=== PATIENT | male | born 1965 | race Two or more races ===

== ENCOUNTER 2020-01-23 14:33 | Inpatient (IN) | payer OTHER ==
[~2020-01-23] VITALS: Ht 172.7 cm; Wt 104.1 kg
[2020-01-23] MEDS ORDERED: DOXYCYCLINE 100MG/250ML 250 ML IV ONE (14:45)
[2020-01-23] MEDS ORDERED: DexAMETHasone SOD PHOS 10MG/1ML VIAL INJ IV ONE (14:45)
[2020-01-23 18:28] LABS: Basophils # (auto) 0 10 ^3/uL (0-0.2); Eosinophils # (auto) 0.1 10 ^3/uL (0-0.8); Eosinophils % (auto) 0.4 % (0.0-7.0); Lymphocytes # (auto) 0.7 10 ^3/uL (0.4-5.4); Neutrophils # (auto) 14.5 10 ^3/uL (1.6-8.6)
[2020-01-23 18:30] LABS: Basophils % (auto) 0.3 % (0.0-2.0); Hematocrit 54.7 % (41.0-53.0); Hemoglobin 17.9 g/dL (13.5-17.5); Lymphocytes % (auto) 4.4 % (10.0-50.0); Mean Corpuscular Hemoglobin 26.6 pg (28.0-32.0); Mean Corpuscular Hgb Conc. 32.7 g/dL (32.0-36.0); Mean Corpuscular Volume 81.3 fL (80.0-100.0); Monocytes # (auto) 1.2 10 ^3/uL (0-1.3); Monocytes % (auto) 7.3 % (0.0-12.0); Neutrophils % (auto) 87.6 % (37.0-80.0); Platelet Count (auto) 240 10^3/uL (140-450); Red Blood Cells 6.72 10^6/uL (4.5-5.90); Red Cell Distribution Width 14.5 % (11.8-14.3); White Blood Cell 16.5 10^3/uL (4.4-10.8)
[2020-01-23 18:44] LABS: Albumin 2.8 g/dL (3.4-5.0); Anion Gap 8 (5-15); Blood Urea Nitrogen 24 mg/dL (7-18); Calcium 8.7 mg/dL (8.5-10.1); Carbon Dioxide 26 mmol/L (21-32); Chloride 104 mmol/L (98-107); Glucose 150 mg/dL (74-106); Potassium 3.7 mmol/L (3.5-5.1); Sodium 138 mmol/L (136-145)
[2020-01-23 18:54] LABS: Alanine Aminotransferase 139 U/L (16-61); Alkaline Phosphatase 118 U/L (45-117); Aspartate Aminotransferase 74 U/L (15-37); BUN/Creatinine Ratio 14.9; GFR African American 58 mL/min; GFR Non-African American 48 mL/min; Lactate Dehydrogenase 526 U/L (87-241); Total Protein 8.2 g/dL (6.4-8.2)
[2020-01-24] MEDS ORDERED: NITROGLYCERIN 0.4 MG SL TAB SL PRN (01:30)
[2020-01-24] MEDS ORDERED: DOCUSATE SOD 100 MG CAP PO PRN (01:30)
[2020-01-24] MEDS ORDERED: MORPHINE SULF INJ 2 MG/ML SYRINGE 1ML IV PRN (01:30)
[2020-01-24] MEDS ORDERED: ASCORBIC ACID 500 MG TAB PO SCH (10:00)
[2020-01-24] MEDS ORDERED: DOXYCYCLINE 100MG/250ML 250 ML IV SCH (10:00)
[2020-01-24] MEDS ORDERED: REMDESIVIR PER PHARMACY 0 ML IV SCH (10:45)
[2020-01-24] MEDS: DexAMETHasone SOD PHOS 10MG/1ML VIAL INJ IV SCH (11:58)
[2020-01-24] MEDS: MULTIPLE VITAMIN TAB PO SCH (11:59)
[2020-01-24] MEDS: FAMOTIDINE 20 MG TAB PO SCH ×2 (12:00→21:49)
[2020-01-24] MEDS: ZINC SULFATE 220mg CAP or TAB PO SCH (12:00)
[2020-01-24] MEDS ORDERED: ENOXAPARIN SOD 100 MG/1 ML SYRINGE SC ONE (12:30)
[2020-01-24] MEDS ORDERED: levoFLOXacin 750MG 150 ML IV ONE (12:30)
[2020-01-24] MEDS ORDERED: FUROSEMIDE 40 MG/4 ML VIAL IV ONE (12:30)
[2020-01-24] MEDS: BUDESONIDE (INHALATION) 180 MCG IH IN SCH ×2 (13:36→21:34)
[2020-01-24] MEDS: CHOLECALCIFEROL (VITD3) 2,000 UNIT CAP PO SCH (14:32)
[2020-01-24 16:32] LABS: Urine WBC None Seen /hpf (0 - 3)
[2020-01-24 17:12] LABS: Urine Bacteria NONE SEEN /hpf (None Seen); Urine Blood Negative /uL (Negative); Urine Specific Gravity 1.008 (1.001-1.035)
[2020-01-24] MEDS: ENOXAPARIN SOD 100 MG/1 ML SYRINGE SC SCH (21:50)
[2020-01-24 21:54] VITALS: BP 119/72
[2020-01-25] MEDS: ONDANSETRON HCL 4 MG/2 ML VIAL IV PRN ×2 (00:05→10:34)
[2020-01-25] MEDS: ALBUTEROL SULF HFA 90MCG INH 200DOSE IN PRN ×2 (01:28→23:32)
[2020-01-25] MEDS ORDERED: ZOLP10TA PO (02:23)
[2020-01-25] MEDS ORDERED: MULTCAP45 PO (02:23)
[2020-01-25 05:00] VITALS: BP 121/79
[2020-01-25 05:23] LABS: Eosinophils # (auto) 0 10 ^3/uL (0-0.8); Monocytes # (auto) 1.1 10 ^3/uL (0-1.3); Nucleated Red Blood Cells % 0.2 %
[2020-01-25 05:25] LABS: Basophils # (auto) 0 10 ^3/uL (0-0.2); Basophils % (auto) 0.2 % (0.0-2.0); Hematocrit 49.4 % (41.0-53.0); Hemoglobin 16.1 g/dL (13.5-17.5); Lymphocytes # (auto) 0.9 10 ^3/uL (0.4-5.4); Lymphocytes % (auto) 5.1 % (10.0-50.0); Mean Corpuscular Hemoglobin 26.4 pg (28.0-32.0); Mean Corpuscular Hgb Conc. 32.5 g/dL (32.0-36.0); Mean Corpuscular Volume 81.3 fL (80.0-100.0); Neutrophils # (auto) 16.5 10 ^3/uL (1.6-8.6); Neutrophils % (auto) 88.7 % (37.0-80.0); Platelet Count (auto) 191 10^3/uL (140-450); Red Blood Cells 6.08 10^6/uL (4.5-5.90); Red Cell Distribution Width 14.2 % (11.8-14.3); White Blood Cell 18.6 10^3/uL (4.4-10.8)
[2020-01-25 05:49] LABS: BUN/Creatinine Ratio 24.6; Bilirubin, Total 0.7 mg/dL (0.2-1.0); Calcium 8.8 mg/dL (8.5-10.1)
[2020-01-25] MEDS: BUDESONIDE (INHALATION) 180 MCG IH IN SCH ×2 (06:56→22:16)
--- NOTE | 2020-01-25 07:55 | NUR ---
Opening Shift Note Assumed care of patient, awake and alert. No S/S of distress/SOB or pain. Instructed on POC and to call for assist PRN, will continue to monitor for changes Q1hr and PRN. Fall precautions in place per safety protocol. Patient currently on 15L Non-Rebreather.
[2020-01-25 09:00] VITALS: BP 112/67
[2020-01-25] MEDS: FUROSEMIDE 40 MG/4 ML VIAL IV SCH (09:44)
[2020-01-25] MEDS: DexAMETHasone SOD PHOS 10MG/1ML VIAL INJ IV SCH (09:44)
[2020-01-25] MEDS: ENOXAPARIN SOD 100 MG/1 ML SYRINGE SC SCH (09:45)
[2020-01-25] MEDS: ASCORBIC ACID 500 MG TAB PO SCH (09:45)
[2020-01-25] MEDS: levoFLOXacin 750MG 150 ML IV SCH (09:45)
[2020-01-25] MEDS: CHOLECALCIFEROL (VITD3) 2,000 UNIT CAP PO SCH (09:45)
[2020-01-25] MEDS: ZINC SULFATE 220mg CAP or TAB PO SCH (09:45)
[2020-01-25] MEDS: MULTIPLE VITAMIN TAB PO SCH (09:45)
[2020-01-25] MEDS: FAMOTIDINE 20 MG TAB PO SCH ×2 (09:45→23:13)
--- NOTE | 2020-01-25 10:00 | NUR ---
IV insertion IV access obtained, via clean sterile technique by inserting 22 gauge catheter at R hand after 1 attempt. IV secured properly. No trauma to site. Patient tolerated well. IV removal IV on R AC DC'd with clean sterile technique due to IV leaking, catheter fully intact. Pressure dressing applied to site. Patient tolerated well.
[2020-01-25] MEDS ORDERED: REMDESIVIR PER PHARMACY 0 ML IV SCH (11:30)
[2020-01-25 13:00] VITALS: BP 105/74
[2020-01-25] MEDS ORDERED: REMDESIVIR 200 MG in NS 210ml LOADING DOSE ADULT IV ONE ×2 (15:00→20:00)
--- NOTE | 2020-01-25 15:10 | NUR ---
IV insertion for CT Angio IV access obtained, via clean sterile technique by inserting 20 gauge catheter at LFA after 2 attempts. IV secured properly. No trauma to site. Patient tolerated well.
[2020-01-25 17:00] VITALS: BP 102/63
--- NOTE | 2020-01-25 18:53 | NUR ---
Remdesivir Received Medications from [facility]. Medication placed in Fridge, witnessed by SHEYLA Sarmiento. Will endorse to corrections counselor.
[2020-01-25 22:00] VITALS: BP 111/66
--- NOTE | 2020-01-25 22:25 | NUR ---
REMDESIVIR ADMINISTRATION LOADING DOSE PATIENT TOLERATED INFUSION WELL, NO S/S OF DISTRESS OR SOB PREINFUSION VITAL SIGNS: BP 111/56 HR 87 TEMP 97.8 F SPO2 96% RR 20 15 MIN INFUSION VITAL SIGNS: BP 119/ 74 HR 82 TEMP 97.6 SPO2 97% RR 20 POSTINFUSION VITAL SIGNS: BP 114/ 58 HR 78 TEMP 97.7 SPO2 97% RR 20
--- NOTE | 2020-01-25 22:50 | NUR ---
PAGED HOSPITALIST MADE HOSPITALIST AWARE OF CT ANGIO RESULTS. NEW ORDERS RECEIVED READ BACK AND VERIFIED, WILL IMPLEMENT. WILL CONTINUE TO MONITOR PATIENT Q1 AND PRN.
[2020-01-25] MEDS: APIXABAN 5 MG TAB PO SCH (23:13)
[2020-01-26] MEDS: HYDROcodone-ACET 5/325MG TAB PO PRN (00:04)
[2020-01-26 05:00] VITALS: BP 95/61
[2020-01-26] MEDS: ALBUTEROL SULF HFA 90MCG INH 200DOSE IN PRN ×2 (07:00→19:22)
[2020-01-26] MEDS: BUDESONIDE (INHALATION) 180 MCG IH IN SCH ×2 (07:00→21:57)
[2020-01-26 08:00] VITALS: BP 110/75
[2020-01-26] MEDS: ZINC SULFATE 220mg CAP or TAB PO SCH (09:43)
[2020-01-26] MEDS: DexAMETHasone SOD PHOS 10MG/1ML VIAL INJ IV SCH (09:43)
[2020-01-26] MEDS: levoFLOXacin 750MG 150 ML IV SCH (09:43)
[2020-01-26] MEDS: FUROSEMIDE 40 MG/4 ML VIAL IV SCH (09:43)
[2020-01-26] MEDS: FAMOTIDINE 20 MG TAB PO SCH ×2 (09:44→22:27)
[2020-01-26] MEDS: ASCORBIC ACID 500 MG TAB PO SCH (09:44)
[2020-01-26] MEDS: MULTIPLE VITAMIN TAB PO SCH (09:44)
[2020-01-26] MEDS: CHOLECALCIFEROL (VITD3) 2,000 UNIT CAP PO SCH (09:44)
[2020-01-26] MEDS: APIXABAN 5 MG TAB PO SCH ×2 (10:12→22:27)
[2020-01-26] MEDS: ACETAMINOPHEN 325 MG TAB PO PRN (10:13)
--- NOTE | 2020-01-26 11:50 | NUR ---
Nutrition Assessment Est energy needs 3880-9373 kcal (14-18 kcal/kg BW 101.4kg) Est protein needs 61-76g (0.6-0.75g/kg BW 101.4kg r/t CKD no HD) Will monitor and reassess prn. Addendum: 01/26/20 at [address] Amended: Links added.
[2020-01-26 12:00] VITALS: BP 97/59
[2020-01-26 14:34] LABS: Albumin 2.3 g/dL (3.4-5.0); Calcium 8.7 mg/dL (8.5-10.1)
[2020-01-26 14:44] LABS: BUN/Creatinine Ratio 27.4; Bilirubin, Total 0.7 mg/dL (0.2-1.0); Total Protein 7.5 g/dL (6.4-8.2)
[2020-01-26] MEDS: REMDESIVIR 100 MG in SODIUM CHL 0.9% 250 ML IV SCH (15:16)
--- NOTE | 2020-01-26 15:36 | NUR ---
REMDESIVIR Pre-infusion BP:125/79 HR:108 15min Post-Infusion BP: 116/87 HR:83
[2020-01-26 17:00] VITALS: BP 108/64
[2020-01-26 22:00] VITALS: BP 115/74
[2020-01-27 05:00] VITALS: BP 112/73
--- NOTE | 2020-01-27 06:26 | NUR ---
Respiratory note: TOOK PATIENT OFF NRB AND PLACED ON A 12L OXYMIZER. SPO2 92%
[2020-01-27 06:29] LABS: Albumin 2.1 g/dL (3.4-5.0); Calcium 8.5 mg/dL (8.5-10.1); Potassium 3.8 mmol/L (3.5-5.1)
[2020-01-27 06:32] LABS: Bilirubin, Total 0.7 mg/dL (0.2-1.0)
[2020-01-27] MEDS: ALBUTEROL SULF HFA 90MCG INH 200DOSE IN PRN ×2 (06:36→19:57)
[2020-01-27] MEDS: BUDESONIDE (INHALATION) 180 MCG IH IN SCH ×2 (06:36→19:57)
--- NOTE | 2020-01-27 07:15 | NUR ---
END OF SHIFT NOTE WILL ENDORSE CARE TO DAYSHIFT RN. AT THIS TIME PATIENT HAS NO S/S OF DISTRESS OR SOB.
--- NOTE | 2020-01-27 08:00 | NUR ---
Morning note Patient resting in bed with even and unlabored respirations on 12LPM Oxymizer, no distress noted. Instructed patient on POC, fall precautions and to call for assistance as needed. patient verbalized understanding. Fall precautions in place with call light within reach.
[2020-01-27 09:00] VITALS: BP 109/72
[2020-01-27] MEDS: DexAMETHasone SOD PHOS 10MG/1ML VIAL INJ IV SCH (10:02)
[2020-01-27] MEDS: levoFLOXacin 750MG 150 ML IV SCH (10:03)
[2020-01-27] MEDS: ZINC SULFATE 220mg CAP or TAB PO SCH (10:04)
[2020-01-27] MEDS: CHOLECALCIFEROL (VITD3) 2,000 UNIT CAP PO SCH (10:05)
[2020-01-27] MEDS: FAMOTIDINE 20 MG TAB PO SCH ×2 (10:05→21:41)
[2020-01-27] MEDS: ASCORBIC ACID 500 MG TAB PO SCH (10:05)
[2020-01-27] MEDS: APIXABAN 5 MG TAB PO SCH ×2 (10:06→21:41)
[2020-01-27] MEDS: MULTIPLE VITAMIN TAB PO SCH (10:06)
[2020-01-27] MEDS: FUROSEMIDE 40 MG/4 ML VIAL IV SCH (10:23)
--- NOTE | 2020-01-27 11:30 | NUR ---
MD was at bedside/IS placed at bedside Dr. Gracia was at bedside. IS placed at bedside per MD order. Educated patient on proper use. Patient verbalized understanding.
[2020-01-27 12:00] VITALS: BP 108/68
--- NOTE | 2020-01-27 16:25 | NUR ---
Patient transferred to room 279B via wheelchair Patient on 12LPM Oxymizer. Respirations even and unlabored, no distress noted. Patient transferred with all personal belongings. Patient to update next of kin on transfer.
[2020-01-27 17:00] VITALS: BP 104/68
[2020-01-27] MEDS: REMDESIVIR 100 MG in SODIUM CHL 0.9% 250 ML IV SCH (17:30)
--- NOTE | 2020-01-27 18:47 | NUR ---
Closing note Patient resting in bed with even and unlabored respirations on 12LPM Oxymizer, no distress noted. Fall precautions in place with call light within reach.
--- NOTE | 2020-01-27 18:49 | NUR ---
RE: Remdesivir Remdesivir infusing per MD order. Patient tolerating well. VS prior to infusion: BP 104/68mmHg, HR 86 bpm, pulse ox 92% on 12LPM Oxymizer. VS obtained 15 minutes after infusion starting: BP 114/69mmHg.
--- NOTE | 2020-01-27 19:26 | NUR ---
Opening Shift Note Assumed care of patient, awake and alert. No S/S of distress/SOB or pain. Instructed on POC and to call for assist PRN, will continue to monitor for changes Q1hr and PRN. bed in low position call light within reach.
--- NOTE | 2020-01-27 19:26 | NUR ---
Care endorsed to SHEYLA Gaffney.
[2020-01-27 21:00] VITALS: BP 101/70
--- NOTE | 2020-01-27 21:10 | NUR ---
Patient requesting sleeping pill will notify Hospitalist
--- NOTE | 2020-01-27 21:42 | NUR ---
Patient educated on how to use Incentive Spirometer patient verbalized understanding
--- NOTE | 2020-01-27 22:00 | NUR ---
Hospitalist paged for sleeping pill medication
--- NOTE | 2020-01-27 23:00 | NUR ---
Rounds Patient sleeping. shows no signs or symptoms of distress/sob or pain. HR 95bpm. Bilateral chest rise and fall rr 19.
[2020-01-28 05:05] VITALS: BP 106/70
[2020-01-28] MEDS: ALBUTEROL SULF HFA 90MCG INH 200DOSE IN PRN ×2 (06:47→21:01)
[2020-01-28] MEDS: BUDESONIDE (INHALATION) 180 MCG IH IN SCH ×2 (06:47→21:01)
[2020-01-28 07:11] LABS: Albumin 2.3 g/dL (3.4-5.0); Calcium 8.5 mg/dL (8.5-10.1); Potassium 3.9 mmol/L (3.5-5.1)
[2020-01-28 07:15] LABS: Basophils # (auto) 0 10 ^3/uL (0-0.2); Basophils % (auto) 0.1 % (0.0-2.0); Eosinophils # (auto) 0 10 ^3/uL (0-0.8); Eosinophils % (auto) 0.3 % (0.0-7.0); Hemoglobin 17.1 g/dL (13.5-17.5); Lymphocytes # (auto) 1.4 10 ^3/uL (0.4-5.4); Monocytes # (auto) 1.3 10 ^3/uL (0-1.3); Monocytes % (auto) 9.3 % (0.0-12.0)
[2020-01-28 07:17] LABS: Hematocrit 51.2 % (41.0-53.0); Lymphocytes % (auto) 10.3 % (10.0-50.0); Mean Corpuscular Hgb Conc. 33.3 g/dL (32.0-36.0); Mean Corpuscular Volume 81.1 fL (80.0-100.0); Nucleated Red Blood Cells % 0.1 %; Platelet Count (auto) 285 10^3/uL (140-450); Red Blood Cells 6.32 10^6/uL (4.5-5.90); White Blood Cell 13.8 10^3/uL (4.4-10.8)
[2020-01-28 07:20] LABS: BUN/Creatinine Ratio 27.8; Bilirubin, Total 0.7 mg/dL (0.2-1.0); CRP High Sensitivity 3.79 mg/dL (< 0.3); Total Protein 7.1 g/dL (6.4-8.2)
[2020-01-28 08:00] VITALS: BP 123/66
--- NOTE | 2020-01-28 08:00 | NUR ---
Opening shift note Assumed care of pt. Alert and Oriented x4. No S/S of distress/SOB or pain. Instructed POC. Will continue to monitor for changes Q1Hr, and PRN. Bed low position, call light w/in reach.
[2020-01-28] MEDS: DexAMETHasone SOD PHOS 10MG/1ML VIAL INJ IV SCH (11:34)
[2020-01-28] MEDS: FUROSEMIDE 40 MG/4 ML VIAL IV SCH (11:36)
[2020-01-28] MEDS: CHOLECALCIFEROL (VITD3) 2,000 UNIT CAP PO SCH (11:37)
[2020-01-28] MEDS: FAMOTIDINE 20 MG TAB PO SCH ×2 (11:38→21:33)
[2020-01-28] MEDS: ASCORBIC ACID 500 MG TAB PO SCH (11:39)
[2020-01-28] MEDS: ZINC SULFATE 220mg CAP or TAB PO SCH (11:40)
[2020-01-28] MEDS: MULTIPLE VITAMIN TAB PO SCH (11:40)
[2020-01-28] MEDS: levoFLOXacin 750MG 150 ML IV SCH (11:42)
[2020-01-28] MEDS: APIXABAN 5 MG TAB PO SCH ×2 (11:47→21:33)
--- NOTE | 2020-01-28 13:12 | NUR ---
IV out LFA IV taken out due to pain and burning when in use. RHA IV still remains intact.
[2020-01-28 14:51] VITALS: BP 94/71
[2020-01-28] MEDS: REMDESIVIR 100 MG in SODIUM CHL 0.9% 250 ML IV SCH (17:58)
[2020-01-28 18:00] VITALS: BP 109/71
--- NOTE | 2020-01-28 18:32 | NUR ---
IV removal/IV inserted IV DC'd with sterile technique, catheter fully intact. Pressure dressing applied to site. Patient tolerated procedure well. 22G IV inserted to RFA. aseptic techniques used. IV secured and dated. NOTE:
--- NOTE | 2020-01-28 18:33 | NUR ---
RE: Remdesivir Remdesivir infusing per MD order. VS obtained. VS WNL.
[2020-01-28 18:55] VITALS: BP 109/71
--- NOTE | 2020-01-28 19:15 | NUR ---
Opening Shift Note Assumed care of patient, awake and alert. No S/S of distress/SOB or pain. Instructed on POC and to call for assist PRN, will continue to monitor for changes Q1hr and PRN. Bed in low position and call light within reach.
--- NOTE | 2020-01-28 19:17 | NUR ---
RE: Remdesivir Remdesivir continues to infuse per MD order. patient tolerating well.
--- NOTE | 2020-01-28 19:18 | NUR ---
Closing Note Pt care transferred. Pt vitals WNL. Pt resting in bed on 10L oxymizer. Pt in no distress. Respirations normal and non-labored. Call light placed w/in reach.
--- NOTE | 2020-01-28 20:28 | NUR ---
Received call back from hospitalist [place]. Notified DALIA pugh patient requesting sleeping pill. New orders received orders read back and verified by DALIA marshall
[2020-01-28] MEDS ORDERED: TEMAZEPAM 15 MG CAP PO ONE (20:30)
[2020-01-28 22:00] VITALS: BP 106/69
[2020-01-29] VITALS (8 sets, daily range): BP systolic 92–109; BP diastolic 57–77
[2020-01-29 06:37] LABS: Albumin 2.3 g/dL (3.4-5.0); BUN/Creatinine Ratio 29.5; Bilirubin, Total 0.7 mg/dL (0.2-1.0); Calcium 8.5 mg/dL (8.5-10.1)
--- NOTE | 2020-01-29 07:10 | NUR ---
REPORT GIVEN TO DAYSHIFT RN PATIENT DENIES SOB/DISTRESS OR PAIN
[2020-01-29] MEDS: ALBUTEROL SULF HFA 90MCG INH 200DOSE IN PRN (08:59)
[2020-01-29] MEDS: BUDESONIDE (INHALATION) 180 MCG IH IN SCH (08:59)
[2020-01-29] MEDS: DexAMETHasone SOD PHOS 10MG/1ML VIAL INJ IV SCH (10:53)
[2020-01-29] MEDS: ZINC SULFATE 220mg CAP or TAB PO SCH (10:54)
[2020-01-29] MEDS: MULTIPLE VITAMIN TAB PO SCH (10:54)
[2020-01-29] MEDS: APIXABAN 5 MG TAB PO SCH ×2 (10:54→21:24)
[2020-01-29] MEDS: levoFLOXacin 750MG 150 ML IV SCH (10:54)
[2020-01-29] MEDS: FUROSEMIDE 40 MG/4 ML VIAL IV SCH (10:54)
[2020-01-29] MEDS: ASCORBIC ACID 500 MG TAB PO SCH (10:55)
[2020-01-29] MEDS: CHOLECALCIFEROL (VITD3) 2,000 UNIT CAP PO SCH (10:55)
[2020-01-29] MEDS: FAMOTIDINE 20 MG TAB PO SCH ×2 (10:55→21:24)
--- NOTE | 2020-01-29 12:15 | NUR ---
Nutrition Followup Notes Wt 105.5 kg Pt is in COVID isolation. Pt is currently on cardiac diet with adequate PO of 75% x5 per RN doc. pt also with DVT. Est energy needs 5015-5729 kcal (14-18 kcal/kg BW 101.4kg) Est protein needs 61-76g (0.6-0.75g/kg BW 101.4kg r/t CKD no HD) Will monitor and reassess prn. Labs: GLU 124 H BUN 38 H ALB 2.3 L BM: Pt had 1 BM today per RN note Skin: BS 20 low risk, full details in hospice home care coordinator note PES: Altered nutrition related labs aeb pt with elevated RFts, hyperglycemia, hypoalb r/t chronic medical conditions Obesity aeb pt with a BMI of 34.0kg/m2 r/t caloric intake in excess of needs Comments: Will continue to monitor PO intake, skin status, pertinent labs and weight trends. Will f/u in 3-5 days Rec: 1) Continue current plan of care
[2020-01-29] MEDS: REMDESIVIR 100 MG in SODIUM CHL 0.9% 250 ML IV SCH (15:30)
--- NOTE | 2020-01-29 15:30 | NUR ---
REMDESIVIR PRE-INFUSION VS BP: 105/68 MMHG HR: 97 BPM SPO2: 98% WILL CONTINUE TO MONITOR FOR CHANGES.
--- NOTE | 2020-01-29 15:45 | NUR ---
REMDESIVIR 15 MIN-INFUSION VS BP: 108/70 MMHG HR: 92 BPM SPO2: 94% WILL CONTINUE TO MONITOR FOR CHANGES. NO S/S OF SOB/DISTRESS NOTED.
--- NOTE | 2020-01-29 17:52 | NUR ---
REMDESIVIR POST INFUSION VS BP: 107/68 MMHG HR: 87 BPM SPO2: 98% WILL CONTINUE TO MONITOR FOR CHANGES. NO S/S OF SOB/DISTRESS NOTED.
--- NOTE | 2020-01-29 19:10 | NUR ---
ENDORSED CARE AND PLASMA ADMINISTRATION TO SHEYLA GARDNER.
--- NOTE | 2020-01-29 20:19 | NUR ---
Patient consented to receive Convalescent Plasma. Patient educated on benefits and risks patient verbalized understanding including of side effects. Patient has no further questions or concerns. Patient denies sob distress or pain.
--- NOTE | 2020-01-29 20:34 | NUR ---
15 min VS obtained. patient denies sob distress or pain. No signs or symptoms of allergic reaction or side effects reported or noted. Patient tolerated plasma transfusion well.
--- NOTE | 2020-01-29 22:06 | NUR ---
PLASMA TRANSFUSION ENDED. PATIENT TOLERATED WELL. DENIES SOB DISTRESS OR PAIN. NO SIGNS OF ALLERGIC REACTION NOTED OR REPORTED.VS TAKEN. CALL LIGHT WITHIN REACH AND BED IN LOW POSITION
[2020-01-29] MEDS: ACETAMINOPHEN 325 MG TAB PO PRN (22:14)
[2020-01-30] MEDS: ALBUTEROL SULF HFA 90MCG INH 200DOSE IN PRN ×2 (00:24→19:43)
[2020-01-30] MEDS: BUDESONIDE (INHALATION) 180 MCG IH IN SCH ×3 (00:24→23:13)
[2020-01-30 04:51] VITALS: BP 102/68
--- NOTE | 2020-01-30 07:05 | NUR ---
Report given to dayshift rn patient denies sob distress or pain.
[2020-01-30 09:00] VITALS: BP 104/68
[2020-01-30] MEDS: DexAMETHasone SOD PHOS 10MG/1ML VIAL INJ IV SCH (10:00)
[2020-01-30] MEDS: CHOLECALCIFEROL (VITD3) 2,000 UNIT CAP PO SCH (10:00)
[2020-01-30] MEDS: levoFLOXacin 750MG 150 ML IV SCH (10:00)
[2020-01-30] MEDS: ASCORBIC ACID 500 MG TAB PO SCH (10:01)
[2020-01-30] MEDS: APIXABAN 5 MG TAB PO SCH (10:01)
[2020-01-30] MEDS: FAMOTIDINE 20 MG TAB PO SCH ×2 (10:01→21:29)
[2020-01-30] MEDS: ZINC SULFATE 220mg CAP or TAB PO SCH (10:01)
[2020-01-30] MEDS: MULTIPLE VITAMIN TAB PO SCH (10:01)
[2020-01-30] MEDS: FUROSEMIDE 40 MG/4 ML VIAL IV SCH (10:02)
[2020-01-30 13:00] VITALS: BP 94/59
[2020-01-30 15:56] LABS: INR 1.23 (0.9-1.15); Partial Thromboplastin Time 32.8 sec (23.0-31.2)
[2020-01-30 17:00] VITALS: BP 99/65
[2020-01-30] MEDS ORDERED: WARFARIN SODIUM 5 MG TAB PO ONE (17:30)
--- NOTE | 2020-01-30 19:00 | NUR ---
OPENING NOTE- NOC SHIFT PATIENT ALERT AND ORIENTED X4. SOB ON EXERTION. PATIENT USES THUMBS UP OR DOWN TO STATE HOW HE IS FEELING. PATIENT USED THUMBS UP DURING THIS ASSESSMENT AND DENIES PAIN. PATIENT IS ON CONTINUOUS HOSPITAL ADMINISTRATIVE ASSISTANT. DISCUSSED POC WITH PATIENT AND INSTRUCTED PATIENT TO CALL USING CALL LIGHT; PATIENT VERBALIZED UNDERSTANDING. BEDSIDE TABLE WITHIN REACH, CALL LIGHT WITHIN REACH. WILL CONTINUE TO MONITOR Q1H AND PRN.
[2020-01-30 20:10] VITALS: BP 102/76
[2020-01-30] MEDS: HYDROcodone-ACET 5/325MG TAB PO PRN (21:31)
[2020-01-30 22:00] VITALS: BP 102/76
--- NOTE | 2020-01-31 | NUR ---
ROUNDS PATIENT RESTING COMFORTABLE. NO S/SX OF DISTRESS, SOB OR PAIN. CHEST RISE IS EVEN AND BREATHS ARE UNLABORED.
[2020-01-31 05:00] VITALS: BP 99/71
--- NOTE | 2020-01-31 05:10 | NUR ---
ROUNDS PATIENT AWAKE WATCHING TELEVISION IN BED. HEAD OF BED IS UP >30 DEGREES. PATIENT STATES VERBALLY THAT HE IS HAPPY WITH THE CARE AT THIS HOSPITAL. PROVIDED PATIENT WITH WET WASH CLOTH UPON REQUEST. NO S/SX OF DISTRESS, SOB OR PAIN. WILL CONTINUE TO MONITOR Q1H AND PRN.
[2020-01-31] MEDS: BUDESONIDE (INHALATION) 180 MCG IH IN SCH ×2 (06:55→20:10)
--- NOTE | 2020-01-31 07:04 | NUR ---
CLOSING NOTE- NOC SHIFT PATIENT IS ALERT AND ORIENTED X4. PATIENT IS COMFORTABLE IN BED. NO S/SX OF DISTRESS, SOB OR PAIN. WILL ENDORSE PATIENT CARE TO DAY SHIFT NURSE.
[2020-01-31 08:18] VITALS: BP 100/61
[2020-01-31 08:43] LABS: Potassium 3.6 mmol/L (3.5-5.1)
[2020-01-31 09:00] VITALS: BP 104/65
[2020-01-31 09:04] LABS: BUN/Creatinine Ratio 21.7; Calcium 9.1 mg/dL (8.5-10.1)
[2020-01-31 09:46] LABS: INR 1.2 (0.9-1.15); Partial Thromboplastin Time 31.5 sec (23.0-31.2)
[2020-01-31] MEDS: MULTIPLE VITAMIN TAB PO SCH (10:32)
[2020-01-31] MEDS: ZINC SULFATE 220mg CAP or TAB PO SCH (10:32)
[2020-01-31] MEDS: FAMOTIDINE 20 MG TAB PO SCH ×2 (10:33→21:02)
[2020-01-31] MEDS: DexAMETHasone SOD PHOS 10MG/1ML VIAL INJ IV SCH (10:34)
[2020-01-31] MEDS: CHOLECALCIFEROL (VITD3) 2,000 UNIT CAP PO SCH (10:34)
[2020-01-31] MEDS: levoFLOXacin 750MG 150 ML IV SCH (10:34)
[2020-01-31] MEDS: ASCORBIC ACID 500 MG TAB PO SCH (10:36)
[2020-01-31] MEDS: FUROSEMIDE 40 MG/4 ML VIAL IV SCH (10:37)
[2020-01-31 13:00] VITALS: BP 100/70
[2020-01-31 17:00] VITALS: BP 95/64
[2020-01-31] MEDS ORDERED: WARFARIN SODIUM 2.5 MG TAB PO ONE (17:00)
--- NOTE | 2020-01-31 17:59 | NUR ---
Patient AOx4, continue to be on 6L oximizer and sat. above 92%, coumadin 7.5 mg given in the afternoon per MD order. Educated patient for watch out for s/s of bleeding and the side effects of the medication. vital signs have been stable. patient ate more than 65% of breakfast and lunch. call light within reach, bed in low position, encouraged patient to call for assistance when getting out of the bed. will continue to monitor patient
--- NOTE | 2020-01-31 19:24 | NUR ---
Opening Shift Note Assumed care of patient, awake and alert x 4. No S/S of distress/SOB or pain.Bed is in lowest position and locked. Call light within reach. Board updated. Tele box number matches monitor and leads are in correct placement. Instructed on POC and to call for assist PRN, will continue to monitor for changes Q1hr and PRN.
[2020-01-31] MEDS: ALBUTEROL SULF HFA 90MCG INH 200DOSE IN PRN (20:10)
[2020-01-31 21:23] VITALS: BP 102/65
[2020-02-01 05:00] VITALS: BP 99/72
[2020-02-01 09:00] VITALS: BP 95/66
[2020-02-01] MEDS: ZINC SULFATE 220mg CAP or TAB PO SCH (09:51)
[2020-02-01] MEDS: DexAMETHasone SOD PHOS 10MG/1ML VIAL INJ IV SCH (09:51)
[2020-02-01] MEDS: MULTIPLE VITAMIN TAB PO SCH (09:51)
[2020-02-01] MEDS: FAMOTIDINE 20 MG TAB PO SCH ×2 (09:52→22:00)
[2020-02-01] MEDS: CHOLECALCIFEROL (VITD3) 2,000 UNIT CAP PO SCH (09:52)
[2020-02-01] MEDS: ASCORBIC ACID 500 MG TAB PO SCH (09:52)
[2020-02-01] MEDS: BUDESONIDE (INHALATION) 180 MCG IH IN SCH ×2 (10:00→19:42)
[2020-02-01 10:24] LABS: Basophils # (auto) 0 10 ^3/uL (0-0.2); Eosinophils # (auto) 0.1 10 ^3/uL (0-0.8)
[2020-02-01 10:26] LABS: Basophils % (auto) 0.3 % (0.0-2.0); Eosinophils % (auto) 0.6 % (0.0-7.0); Hematocrit 54.4 % (41.0-53.0); Hemoglobin 18.2 g/dL (13.5-17.5); Lymphocytes # (auto) 2.4 10 ^3/uL (0.4-5.4); Lymphocytes % (auto) 15.1 % (10.0-50.0); Mean Corpuscular Hemoglobin 27.1 pg (28.0-32.0); Mean Corpuscular Hgb Conc. 33.5 g/dL (32.0-36.0); Mean Corpuscular Volume 80.9 fL (80.0-100.0); Monocytes # (auto) 1.4 10 ^3/uL (0-1.3); Neutrophils # (auto) 12.1 10 ^3/uL (1.6-8.6); Nucleated Red Blood Cells % 0.3 %; Platelet Count (auto) 373 10^3/uL (140-450); Red Blood Cells 6.73 10^6/uL (4.5-5.90); Red Cell Distribution Width 14.4 % (11.8-14.3); White Blood Cell 16.1 10^3/uL (4.4-10.8)
[2020-02-01 10:35] LABS: INR 1.57 (0.9-1.15)
--- NOTE | 2020-02-01 10:40 | NUR ---
Nutrition Followup Notes Wt 104.6 kg Pt is in COVID isolation. Pt with no new distress per Rn note. Pt appetite is good aeb pt with an avg po intake fo 78% per Rn nutrition note of Cardiac 2g na Est energy needs 3177-2382 kcal (14-18 kcal/kg BW 101.4kg) Est protein needs 61-76g (0.6-0.75g/kg BW 101.4kg r/t CKD no HD) Will monitor and reassess prn. Labs: BUN 34H, Creat 1.57H, Alb 2.2L BM: Pt had 1 BM today per RN note Skin: BS 20 low risk, full details in critical care cns note PES: Altered nutrition related labs aeb pt with elevated RFts, hyperglycemia, hypoalb r/t chronic medical conditions Obesity aeb pt with a BMI of 34.0kg/m2 r/t caloric intake in excess of needs Comments: Will continue to monitor PO intake, skin status, pertinent labs and weight trends. Will f/u in 3-5 days Rec: 1) Continue current plan of care
[2020-02-01 11:03] LABS: Potassium 3.4 mmol/L (3.5-5.1)
[2020-02-01 11:11] LABS: BUN/Creatinine Ratio 23.7; Calcium 8.6 mg/dL (8.5-10.1)
[2020-02-01 12:54] VITALS: BP 90/62
[2020-02-01] MEDS: ALBUTEROL SULF HFA 90MCG INH 200DOSE IN PRN ×2 (16:20→19:42)
[2020-02-01] MEDS ORDERED: POTASSIUM CHL 20 Meq TABLET PO ONE (16:30)
[2020-02-01] MEDS ORDERED: SALINE 0.65 % NASAL SPRAY 45ML BOTTLE EACHNOSTRI ONE (16:30)
[2020-02-01] MEDS ORDERED: WARFARIN SODIUM 2.5 MG TAB PO ONE (17:00)
[2020-02-01] MEDS: SALINE 0.65 % NASAL SPRAY 45ML BOTTLE EACHNOSTRI SCH ×2 (18:04→22:00)
--- NOTE | 2020-02-01 19:00 | NUR ---
Opening Shift Note Assumed care of patient, awake and alert. No S/S of distress/SOB or pain. Instructed on POC and to call for assist PRN, will continue to monitor for changes Q1hr and PRN.
[2020-02-01 21:44] VITALS: BP 105/68
[2020-02-01] MEDS ORDERED: APIXABAN 5 MG TAB PO SCH (22:00)
[2020-02-02 05:54] VITALS: BP 104/61
[2020-02-02] MEDS: BUDESONIDE (INHALATION) 180 MCG IH IN SCH ×2 (06:27→20:11)
[2020-02-02] MEDS: ALBUTEROL SULF HFA 90MCG INH 200DOSE IN PRN ×2 (06:27→20:11)
[2020-02-02] MEDS: SALINE 0.65 % NASAL SPRAY 45ML BOTTLE EACHNOSTRI SCH ×4 (06:30→21:16)
[2020-02-02 07:03] LABS: Basophils # (auto) 0.1 10 ^3/uL (0-0.2); Eosinophils # (auto) 0.1 10 ^3/uL (0-0.8); Neutrophils # (auto) 12.2 10 ^3/uL (1.6-8.6)
[2020-02-02 07:05] LABS: Basophils % (auto) 0.4 % (0.0-2.0); Eosinophils % (auto) 0.6 % (0.0-7.0); Hematocrit 52.8 % (41.0-53.0); Hemoglobin 17.3 g/dL (13.5-17.5); Lymphocytes # (auto) 2.7 10 ^3/uL (0.4-5.4); Mean Corpuscular Hemoglobin 26.6 pg (28.0-32.0); Mean Corpuscular Hgb Conc. 32.8 g/dL (32.0-36.0); Mean Corpuscular Volume 81.1 fL (80.0-100.0); Monocytes # (auto) 1.8 10 ^3/uL (0-1.3); Monocytes % (auto) 10.8 % (0.0-12.0); Neutrophils % (auto) 72.2 % (37.0-80.0); Nucleated Red Blood Cells % 0.3 %; Platelet Count (auto) 416 10^3/uL (140-450); Red Blood Cells 6.51 10^6/uL (4.5-5.90); Red Cell Distribution Width 14.5 % (11.8-14.3); White Blood Cell 16.9 10^3/uL (4.4-10.8)
[2020-02-02 07:29] LABS: INR 1.71 (0.9-1.15)
[2020-02-02 07:44] LABS: Anion Gap 6 (5-15); BUN/Creatinine Ratio 25.6; Blood Urea Nitrogen 30 mg/dL (7-18); Calcium 8.6 mg/dL (8.5-10.1); Carbon Dioxide 26 mmol/L (21-32); Chloride 102 mmol/L (98-107); GFR African American 84 mL/min; GFR Non-African American 69 mL/min; Glucose 95 mg/dL (74-106); Potassium 4.2 mmol/L (3.5-5.1); Sodium 134 mmol/L (136-145)
[2020-02-02 08:39] VITALS: BP 100/65
[2020-02-02] MEDS: ASCORBIC ACID 500 MG TAB PO SCH (10:25)
[2020-02-02] MEDS: FAMOTIDINE 20 MG TAB PO SCH ×2 (10:25→21:16)
[2020-02-02] MEDS: DexAMETHasone 4 MG TAB PO SCH (10:25)
[2020-02-02] MEDS: CHOLECALCIFEROL (VITD3) 2,000 UNIT CAP PO SCH (10:25)
[2020-02-02] MEDS: MULTIPLE VITAMIN TAB PO SCH (10:25)
[2020-02-02] MEDS: ZINC SULFATE 220mg CAP or TAB PO SCH (10:25)
[2020-02-02 12:55] VITALS: BP 93/62
[2020-02-02 16:56] VITALS: BP 103/63
[2020-02-02] MEDS ORDERED: WARFARIN SODIUM 5 MG TAB PO ONE (17:00)
[2020-02-02 22:00] VITALS: BP 105/53
[2020-02-03 05:00] VITALS: BP 102/64
[2020-02-03] MEDS: SALINE 0.65 % NASAL SPRAY 45ML BOTTLE EACHNOSTRI SCH ×4 (05:48→21:18)
[2020-02-03 07:08] LABS: INR 1.73 (0.9-1.15)
[2020-02-03 08:00] VITALS: BP 104/65
[2020-02-03] MEDS: ZINC SULFATE 220mg CAP or TAB PO SCH (08:59)
[2020-02-03] MEDS: MULTIPLE VITAMIN TAB PO SCH (09:00)
[2020-02-03] MEDS: ASCORBIC ACID 500 MG TAB PO SCH (09:00)
[2020-02-03] MEDS: DexAMETHasone 4 MG TAB PO SCH (09:00)
[2020-02-03] MEDS: CHOLECALCIFEROL (VITD3) 2,000 UNIT CAP PO SCH (09:00)
[2020-02-03] MEDS: FAMOTIDINE 20 MG TAB PO SCH ×2 (09:00→21:18)
[2020-02-03 13:00] VITALS: BP 104/68
[2020-02-03] MEDS: BUDESONIDE (INHALATION) 180 MCG IH IN SCH ×2 (14:00→22:00)
[2020-02-03 17:00] VITALS: BP 117/64
[2020-02-03] MEDS ORDERED: WARFARIN SODIUM 2.5 MG TAB PO ONE (17:00)
[2020-02-03] MEDS: ALBUTEROL SULF HFA 90MCG INH 200DOSE IN PRN (20:08)
[2020-02-03 22:00] VITALS: BP 97/66
[2020-02-04] MEDS: SALINE 0.65 % NASAL SPRAY 45ML BOTTLE EACHNOSTRI SCH ×3 (05:37→18:24)
[2020-02-04 06:10] LABS: INR 2.12 (0.9-1.15)
[2020-02-04] MEDS: ASCORBIC ACID 500 MG TAB PO SCH (09:32)
[2020-02-04] MEDS: ZINC SULFATE 220mg CAP or TAB PO SCH (09:32)
[2020-02-04] MEDS: MULTIPLE VITAMIN TAB PO SCH (09:32)
[2020-02-04] MEDS: CHOLECALCIFEROL (VITD3) 2,000 UNIT CAP PO SCH (09:32)
[2020-02-04] MEDS: FAMOTIDINE 20 MG TAB PO SCH (09:32)
[2020-02-04] MEDS: DexAMETHasone 4 MG TAB PO SCH (09:32)
[2020-02-04] MEDS: BUDESONIDE (INHALATION) 180 MCG IH IN SCH ×2 (10:00→19:38)
--- NOTE | 2020-02-04 12:50 | NUR ---
Nutrition Followup Notes Wt 104.1 kg Pt is in COVID isolation. Pt continues to have no new distress, pt to possible D/c next two days per MD note. Pt with a good appetite aeb pt iwth 75-100% po intake x 2 days per Rn note Est energy needs 7288-5163 kcal (14-18 kcal/kg BW 101.4kg) Est protein needs 61-76g (0.6-0.75g/kg BW 101.4kg r/t CKD no HD) Will monitor and reassess prn. Labs: Na 134H, Alb 2.3L, BUn 30H BM: Pt had 1 BM 02/02 per RN note Skin: BS 21 low risk, full details in home health care provider note PES: Altered nutrition related labs aeb pt with elevated RFts, hyperglycemia, hypoalb r/t chronic medical conditions Obesity aeb pt with a BMI of 34.0kg/m2 r/t caloric intake in excess of needs Comments: Will continue to monitor PO intake, skin status, pertinent labs and weight trends. Will f/u in 3-5 days Rec: 1) Continue current plan of care
[2020-02-04 15:43] VITALS: BP 104/65
--- NOTE | 2020-02-04 15:50 | NUR ---
D/C Planning Regarding social service consult for home oxygen at 4l/min. Faxed clinical information to [employer] requesting for oxygen portable to be deliver to front lobby and concentrate oxygen to patient home. Per Shanae with [employer] order has been received and oxygen will be deliver between 4-5pm. Informed SHEYLA Hudson.
[2020-02-04] MEDS ORDERED: WARFARIN SODIUM 2 MG TAB PO ONE (17:00)
[2020-02-04] MEDS: ALBUTEROL SULF HFA 90MCG INH 200DOSE IN PRN (19:38)
--- NOTE | 2020-02-04 19:50 | NUR ---
DISCHARGE Confirmed delivery of home o2. Patients telemetry box #[id number] removed and sent to cardiac monitor office via [email or web address] system. All personal belongings, discharge paperwork and prescriptions sent with patient. Escorted to lobby by DANK Agarwal on 2L NC. No distress noted.
== END 2020-02-04 19:50 | disposition home or self-care (01) | DRG 871 ==
LOC: ER 14:33 → EDBD 14:33 → TELE 14:34 → TELE-WESTW 01-24 20:04 → TELE-CENTR 01-24 20:20 → TELE-WESTW 01-27 17:38
PROVIDERS: ADMIT Nurse Practitioner Family; ATTEND Internal Medicine
PROC: 5A09357 Assistance with Respiratory Ventilation, Less than 24 Consecutive Hours, Continuous Positive Airway Pressure (ICD-10-PCS; 2020-01-23)
PROC: XW033E5 Introduction of Remdesivir Anti-infective into Peripheral Vein, Percutaneous Approach, New Technology Group 5 (ICD-10-PCS; principal; 2020-01-25)
PROC: XW13325 Transfusion of Convalescent Plasma (Nonautologous) into Peripheral Vein, Percutaneous Approach, New Technology Group 5 (ICD-10-PCS; 2020-01-29)
DX: A41.89 Other specified sepsis (principal); I26.99 Other pulmonary embolism without acute cor pulmonale; J12.89 Other viral pneumonia; J96.01 Acute respiratory failure with hypoxia; J96.02 Acute respiratory failure with hypercapnia; U07.1 COVID-19; I82.432 Acute embolism and thrombosis of left popliteal vein; N17.9 Acute kidney failure, unspecified; E66.9 Obesity, unspecified; Z68.34 Body mass index [BMI] 34.0-34.9, adult; K72.90 Hepatic failure, unspecified without coma; N18.30 Chronic kidney disease, stage 3 unspecified; R73.9 Hyperglycemia, unspecified; Z88.0 Allergy status to penicillin; R65.20 Severe sepsis without septic shock; Z85.528 Personal history of other malignant neoplasm of kidney; R74.01 Elevation of levels of liver transaminase levels
CPT/HCPCS: 36415; 71045; 71275; 80048; 80053; 81001; 82728; 83036; 83615; 83735; 83880; 84484; 85025; 85379; 85610; 85730; 86141; 86850; 86900; 86901; 93005; 93306; 93970; 94640; 96365; 96366; 96368; 96375; 99291; G0378; J1100; J1956; J2405; J3490